=== PATIENT | male | born 1985 ===

== ENCOUNTER 2016-11-16 22:51 | Emergency (ER) | payer SELFPAY ==
[~2016-11-16] VITALS: Ht 170.2 cm; Wt 68.0 kg
[2016-11-16 22:56] VITALS: BP 148/89
[2016-11-17] MEDS: LORazepam 1 MG TAB PO ONE (00:49)
[2016-11-17 01:02] VITALS: BP 135/85
== END 2016-11-17 01:00 | disposition home or self-care (01) ==
LOC: MED 22:51
DX: F12.929 Cannabis use, unspecified with intoxication, unspecified (principal); F10.129 Alcohol abuse with intoxication, unspecified; Y90.9 Presence of alcohol in blood, level not specified
CPT/HCPCS: 99283